=== PATIENT | male | born 1980 | race Caucasian/White ===

== ENCOUNTER 2023-07-19 17:38 | Emergency (ER) | payer SELFPAY ==
[2023-07-19] MEDS ORDERED: Acetaminophen 500 MG TAB ONE (18:47)
[2023-07-19] MEDS ORDERED: Ibuprofen 800 MG TAB ONE (18:47)
[2023-07-19] MEDS ORDERED: Amoxicillin/Potassium Clav 875 MG TAB ONE (20:41)
== END 2023-07-19 20:45 | disposition home or self-care (01) ==
LOC: MADERS 17:38
DX: J18.9 Pneumonia, unspecified organism (principal); F17.210 Nicotine dependence, cigarettes, uncomplicated; Z20.822 Contact with and (suspected) exposure to COVID-19
CPT/HCPCS: 71045; 87635; 87804